=== PATIENT | male | born 1960 | race Caucasian/White ===

== ENCOUNTER 2017-12-21 08:06 | Observation (INO) | payer OTHER ==
[2017-12-21] VITALS (8 sets, daily range): BP systolic 92–144; BP diastolic 64–80; PULSE 56–67; RESP 12–16; TEMP 97.9–98; O2SAT 96–100
[~2017-12-21] VITALS: Ht 172.7 cm; Wt 70.0 kg
[~2017-12-21 08:06] MED LIST: CLIN150 PO; CLOT1CRE TOP; FLUC150T PO; SULF1TAB47 PO
[2017-12-21] MEDS ORDERED: SODIUM CHLOR 0.9% 1000 ML INJ 1,000 ML IV ONE (08:35)
[2017-12-21] MEDS ORDERED: SODIUM CHLORIDE 0.9% FLUSH 10 ML FLUSH IVF PRN (08:45)
[2017-12-21 09:02] LABS: AUTOMATED NEUTROPHIL # 6.5 TH/MM3 (1.8-7.7); BASOPHIL # 0.1 TH/MM3 (0-0.2); BASOPHIL % 0.9 % (0.0-2.0); EOSINOPHIL # 0.3 TH/MM3 (0-0.4); EOSINOPHIL % 2.9 % (0.0-4.0); HEMATOCRIT 45.5 % (39.0-51.0); HEMOGLOBIN 14.7 GM/DL (13.0-17.0); LYMPHOCYTE # 1.7 TH/MM3 (1.0-4.8); MEAN CORPUSCULAR HEMOGLOBIN 28.4 PG (27.0-34.0); MEAN CORPUSCULAR HGB CONC 32.3 % (32.0-36.0); MEAN PLATELET VOLUME 8.3 FL (7.0-11.0); MONO % 4.6 % (0.0-8.0); MONOCYTE # 0.4 TH/MM3 (0-0.9); NEUT % 72.6 % (16.0-70.0); PLATELET COUNT 206 TH/MM3 (150-450); RED BLOOD COUNT 5.17 MIL/MM3 (4.50-5.90); RED CELL DISTRIBUTION WIDTH 12.6 % (11.6-17.2)
--- NOTE | 2017-12-21 09:04 | RADRPT ---
EXAM DATE/TIME: 12/21/2017 08:54 [facility] COMPARISON: No previous studies available for comparison. INDICATIONS : Palpitations, dizzy MEDICAL HISTORY : None. SURGICAL HISTORY : None. ENCOUNTER: Initial ACUITY: 2 days PAIN SCORE: 0/10 LOCATION: Bilateral chest FINDINGS: A single view of the chest demonstrates the lungs to be symmetrically aerated without evidence of mas s, infiltrate or effusion. The cardiomediastinal contours are unremarkable. Osseous structures are intact. CONCLUSION: No acute disease. Yonny Tom MD on December 21, 2017 at 9:01 Board Certified Radiologist. This report was verified electronically.
[2017-12-21 09:11] LABS: CHLORIDE 107 MEQ/L (98-107); SODIUM (NA) 142 MEQ/L (136-145)
[2017-12-21 09:14] LABS: ALBUMIN 3.6 GM/DL (3.4-5.0); BICARBONATE 27.6 MEQ/L (21.0-32.0); CALCIUM 8.6 MG/DL (8.5-10.1); GLUCOSE,RANDOM 109 MG/DL (74-106); MAGNESIUM 2.1 MG/DL (1.5-2.5)
[2017-12-21 09:15] LABS: BLOOD UREA NITROGEN 17 MG/DL (7-18)
[2017-12-21 09:17] LABS: ALT (GPT) 19 U/L (12-78); AST (GOT) 16 U/L (15-37)
[2017-12-21 09:18] LABS: CREATININE 0.97 MG/DL (0.60-1.30); GLOMERULAR FILTRATION RATE 79 ML/MIN (>89)
[2017-12-21 09:19] LABS: TOTAL BILIRUBIN ADULT 0.9 MG/DL (0.2-1.0); TOTAL PROTEIN 6.8 GM/DL (6.4-8.2)
[2017-12-21 09:20] LABS: ALKALINE PHOSPHATASE 68 U/L (45-117)
[2017-12-21 09:22] LABS: TROPONIN I LESS THAN 0.02 NG/ML (0.02-0.05)
--- NOTE | 2017-12-21 09:24 | RADRPT ---
EXAM DATE/TIME: 12/21/2017 09:06 [facility] COMPARISON: No previous studies available for comparison. INDICATIONS : Dizziness. RADIATION DOSE: 62.44 CTDIvol (mGy) MEDICAL HISTORY : None SURGICAL HISTORY : Orthopedic surgery. ENCOUNTER: Initial ACUITY: 2 days PAIN SCALE: 0/10 LOCATION: cranial TECHNIQUE: Multiple contiguous axial images were obtained of the head. Using automated exposure control and adj ustment of the mA and/or kV according to patient size, radiation dose was kept as low as reasonably a chievable to obtain optimal diagnostic quality images. DICOM format image data is available electro nically for review and comparison. FINDINGS: CEREBRUM: The ventricles are normal for age. No evidence of midline shift, mass lesion, hemorrhage or acute in farction. No extra-axial fluid collections are seen. POSTERIOR FOSSA: The cerebellum and brainstem are intact. The 4th ventricle is midline. The cerebellopontine angle i s unremarkable. EXTRACRANIAL: The visualized portion of the orbits is intact. Mucosal thickening involving the ethmoid and maxillar y sinuses. SKULL: The calvaria is intact. No evidence of skull fracture. CONCLUSION: No acute intracranial abnormality. Mucosal thickening involving the ethmoid and maxil ambar sinuses. Yonny Tom MD on December 21, 2017 at 9:20 Board Certified Radiologist. This report was verified electronically.
--- NOTE | 2017-12-21 09:25 | PD ---
HPI Chief Complaint: Dizziness Time Seen by Provider: 08:35 Travel History International Travel<30 days: No Contact w/Intl Traveler<30days: No Traveled to known affect area: No History of Present Illness HPI 57-year-old male returns to the ER due to dizziness and visual changes. Symptoms were noted to be severe last night however he has had mild symptoms for several weeks now. This morning he was unsteady and bracing himself in a doorway which alarmed his who brought him here for evaluation. He reports insomnia lately and stress due to family related concerns. He denies new different medication. He denies past medical history. No loss of consciousness has occurred. No chest pain shortness of breath nausea or vomiting reported. The patient reports night sweats. PFSH Past Medical History Medical History: Denies Significant Hx Musculoskeletal: Yes (ARTHROSCOPIC ON LEFT KNEE 1996) Influenza Vaccination: No Social History Alcohol Use: Yes (STATES 1-2 DAYS A WEEK) Tobacco Use: Yes (1 PPD) Substance Use: No Allergies-Medications (Allergen,Severity, Reaction): Coded Allergies: No Known Allergies (Verified Allergy, Mild, 07/05/13) Reported Meds & Prescriptions Reported Meds & Active Scripts Active Lotrimin Cream (Clotrimazole) 15 Gm Cr 1 Applic TOP BID 14 Days Fluconazole 150 Mg Tab 150 Mg PO WEEKLY Bactrim Ds (Trimethoprim/Sulfamethoxazole) Tab 1 Tab PO BID 10 Days Cleocin (Clindamycin HCl) 150 Mg Cap 2 Tab PO QID 10 Days Review of Systems Except as stated in HPI: all other systems reviewed are Neg General / Constitutional: No: Fever Eyes: Positive: Blurred Vision, Visual changes Physical Exam Narrative GENERAL: 57-year-old male pleasant well-nourished well-developed no acute distress speaking full sentences Vital Signs Date Time Temp Pulse Resp B/P (MAP) Pulse Ox O2 Delivery O2 Flow Rate FiO2 12/21/17 08:50 96 Room Air 12/21/17 08:30 98.0 62 16 137/79 (98) 99 12/21/17 08:07 97.9 67 16 144/77 (99) 100 Room Air SKIN: Warm and dry. HEAD: Atraumatic. Normocephalic. EYES: Pupils equal and round. No scleral icterus. No injection or drainage. ENT: No nasal bleeding or discharge. Mucous membranes pink and moist. NECK: Trachea midline. No JVD. CARDIOVASCULAR: Regular rate and rhythm. RESPIRATORY: No accessory muscle use. Clear to auscultation. Breath sounds equal bilaterally. GASTROINTESTINAL: Abdomen soft, non-tender, nondistended. Hepatic and splenic margins not palpable. MUSCULOSKELETAL: Extremities without clubbing, cyanosis, or edema. No obvious deformities. NEUROLOGICAL: Awake and alert. No obvious cranial nerve deficits. Motor grossly within normal limits. Five out of 5 muscle strength in the arms and legs. Normal speech. PSYCHIATRIC: Appropriate mood and affect; insight and judgment normal. Data Data Last Documented VS Vital Signs Date Time Temp Pulse Resp B/P (MAP) Pulse Ox O2 Delivery O2 Flow Rate FiO2 12/21/17 10:54 67 12 135/64 (87) 98 Room Air 12/21/17 08:30 98.0 Orders Orders Electrocardiogram (12/21/17 08:35) Complete Blood Count With Diff (12/21/17 08:35) Comprehensive Metabolic Panel (12/21/17 08:35) Magnesium (Mg) (12/21/17 08:35) Ckmb (Isoenzyme) Profile (12/21/17 08:35) Troponin I (12/21/17 08:35) Chest, Single Ap (12/21/17 08:35) Ct Brain W/O Iv Contrast(Rout) (12/21/17 08:35) Ecg Monitoring (12/21/17 08:35) Iv Access Insert/Monitor (12/21/17 08:35) Oximetry (12/21/17 08:35) Sodium Chloride 0.9% Flush (Ns Flush) (12/21/17 08:45) Sodium Chlor 0.9% 1000 Ml Inj (Ns 1000 M (12/21/17 08:35) CKMB (12/21/17 08:50) CKMB% (12/21/17 08:50) Place In Observation (12/21/17 ) Vital Signs (Adult) Q4H (12/21/17 11:03) Activity Oob With Assistance (12/21/17 11:03) Diet Regular Basic (12/21/17 Lunch) Sodium Chlor 0.9% 1000 Ml Inj (Ns 1000 M (12/21/17 11:03) Sodium Chloride 0.9% Flush (Ns Flush) (12/21/17 11:15) Sodium Chloride 0.9% Flush (Ns Flush) (12/21/17 21:00) Acetaminophen (Tylenol) (12/21/17 11:15) Ondansetron Inj (Zofran Inj) (12/21/17 11:15) Basic Metabolic Panel (Bmp) (12/22/17 06:00) Complete Blood Count With Diff (12/22/17 06:00) Naloxone Inj (Narcan Inj) (12/21/17 11:15) Sennosides (Senokot) (12/21/17 11:15) Influenzae A/B Antigen (12/21/17 11:03) Mri Brain W/O Contrast (12/21/17 ) Orthostatic Vital Signs (12/21/17 11:03) Admit Order (Ed Use Only) (12/21/17 ) Transcribing Machine Operator / Telemetry [id number] (12/21/17 11:23) Vital Signs (Adult) Q4H (12/21/17 11:23) Activity Bed Rest (12/21/17 11:23) Labs Laboratory Tests Test 12/21/17 08:50 White Blood Count 9.0 TH/MM3 Red Blood Count 5.17 MIL/MM3 Hemoglobin 14.7 GM/DL Hematocrit 45.5 % Mean Corpuscular Volume 88.0 FL Mean Corpuscular Hemoglobin 28.4 PG Mean Corpuscular Hemoglobin Concent 32.3 % Red Cell Distribution Width 12.6 % Platelet Count 206 TH/MM3 Mean Platelet Volume 8.3 FL Neutrophils (%) (Auto) 72.6 % Lymphocytes (%) (Auto) 19.0 % Monocytes (%) (Auto) 4.6 % Eosinophils (%) (Auto) 2.9 % Basophils (%) (Auto) 0.9 % Neutrophils # (Auto) 6.5 TH/MM3 Lymphocytes # (Auto) 1.7 TH/MM3 Monocytes # (Auto) 0.4 TH/MM3 Eosinophils # (Auto) 0.3 TH/MM3 Basophils # (Auto) 0.1 TH/MM3 CBC Comment DIFF FINAL Differential Comment Blood Urea Nitrogen 17 MG/DL Creatinine 0.97 MG/DL Random Glucose 109 MG/DL Total Protein 6.8 GM/DL Albumin 3.6 GM/DL Calcium Level 8.6 MG/DL Magnesium Level 2.1 MG/DL Alkaline Phosphatase 68 U/L Aspartate Amino Transf (AST/SGOT) 16 U/L Alanine Aminotransferase (ALT/SGPT) 19 U/L Total Bilirubin 0.9 MG/DL Sodium Level 142 MEQ/L Potassium Level 4.1 MEQ/L Chloride Level 107 MEQ/L Carbon Dioxide Level 27.6 MEQ/L Anion Gap 7 MEQ/L Estimat Glomerular Filtration Rate 79 ML/MIN Total Creatine Kinase 199 U/L Creatine Kinase MB 2.3 NG/ML Troponin I LESS THAN 0.02 NG/ML MDM Medical Decision Making Medical Screen Exam Complete: Yes Emergency Medical Condition: Yes Medical Record Reviewed: Yes Differential Diagnosis Syncope, arrhythmia, metabolic disarray, anemia Narrative Course EKG shows sinus bradycardia with a rate of 55 no ischemic injury pattern or preexcitation CBC & BMP Diagram 12/21/17 08:50 Total Protein 6.8, Albumin 3.6, Calcium Level 8.6, Magnesium Level 2.1, Alkaline Phosphatase 68, Aspartate Amino Transf (AST/SGOT) 16, Alanine Aminotransferase (ALT/SGPT) 19, Total Bilirubin 0.9 Troponin is less than 0.02 EKG shows a sinus rhythm with a rate of 55 nonspecific T-wave inversions are noted in the inferior leads Head CT is normal Chest x-ray is normal Patient symptoms are slightly concerned due to the chronicity and now with visual change. Fortunately he has no reliable outside follow-up admission for investigation and syncope is considered reasonable. Pt to be admitted by Dr Pierre for [facility] under observation status Diagnosis Primary Impression: Syncope, near Additional Impression: Visual changes Referrals: Primary Care Physician Gm Smith MD Dec 21, 2017 09:25
[2017-12-21] MEDS ORDERED: SODIUM CHLOR 0.9% 1000 ML INJ 1,000 ML IV SCH (11:03)
--- NOTE | 2017-12-21 11:09 | HHI.HP ---
[facility] Service [facility] Primary Care Physician Sesar Mccollum MD Admission Diagnosis Diagnoses: Chief Complaint: Dizziness Travel History International Travel<30 Days: No Contact w/Intl Traveler <30 Da: No Traveled to Known Affected Are: No History of Present Illness This patient is a 57-year-old gentleman with history of recurrent dizziness that usually resolves itself. Today he was increasingly dizzy and had some vision disturbances. He came to the emergency room today for further evaluation. He has no chest pain or shortness of breath but reports increased cough and shortness of breath and increased sinus congestion. He has multiple sick contacts and feels everyone "has the flu". He normally does not take any medications. He has a history of "irregular heart", however his heart rate has been quite stable here. Patient been recommended for observation due to persistent dizziness" rate over 9 years ago Review of Systems Constitutional: COMPLAINS OF: Dizziness, DENIES: Diaphoretic episodes, Fatigue , Fever, Weight gain, Weight loss, Chills, Change in appetite, Night Sweats Endocrine: DENIES: Heat/cold intolerance, Polydipsia, Polyuria, Polyphagia Eyes: DENIES: Blurred vision, Diplopia, Eye inflammation, Eye pain, Vision loss , Photosensitivity, Double Vision Ears, nose, mouth, throat: COMPLAINS OF: Nasal discharge, Hoarseness, DENIES: Tinnitus, Hearing loss, Vertigo, Oral lesions, Throat pain, Ear Pain, Running Nose, Epistaxis, Sinus Pain, Toothache, Odynophagia Respiratory: COMPLAINS OF: Cough, DENIES: Apneas, Snoring, Wheezing, Hemoptysis , Sputum production, Shortness of breath Cardiovascular: DENIES: Chest pain, Palpitations, Syncope, Dyspnea on Exertion , PND, Lower Extremity Edema, Orthopnea, Claudication Gastrointestinal: DENIES: Abdominal pain, Black stools, Bloody stools, Constipation, Diarrhea, Nausea, Vomiting, Difficulty Swallowing, Anorexia Genitourinary: DENIES: Sexual dysfunction, Urinary frequency, Urinary incontinence, Urgency, Hematuria, Dysuria, Nocturia, Penile Discharge, Testicular Pain, Testicular Swelling Musculoskeletal: DENIES: Joint pain, Muscle aches, Stiffness, Joint Swelling, Back pain, Neck pain Integumentary: DENIES: Abnormal pigmentation, Nail changes, Pruritus, Rash Immunologic/allergic: DENIES: Eczema, Urticaria Neurologic: DENIES: Abnormal gait, Headache, Localized weakness, Paresthesias, Seizures, Speech Problems, Tremor, Poor Balance Psychiatric: DENIES: Anxiety, Confusion, Mood changes, Depression, Hallucinations, Agitation, Suicidal Ideation, Homicidal Ideation, Delusions Except as stated in HPI: all other systems reviewed are Neg Past Family Social History Past Medical History Denies Past Surgical History Left knee surgery Reported Medications Reviewed in the EMR, nothing chronic Allergies: Coded Allergies: No Known Allergies (Verified , 07/05/13) Active Ordered Medications None Family History Mother and father have weakness and mother has dementia Social History No alcohol dependency Lives with family Physical Exam Vital Signs Vital Signs Date Time Temp Pulse Resp B/P (MAP) Pulse Ox O2 Delivery O2 Flow Rate FiO2 12/21/17 10:54 67 12 135/64 (87) 98 Room Air 12/21/17 08:50 96 Room Air 12/21/17 08:30 98.0 62 16 137/79 (98) 99 12/21/17 08:07 97.9 67 16 144/77 (99) 100 Room Air Physical Exam GENERAL: This is a well-nourished, well-developed patient, congestion in the sinuses SKIN: No rashes, ecchymoses or lesions. Cool and dry. HEAD: Atraumatic. Normocephalic. No temporal or scalp tenderness. EYES: Pupils equal round and reactive. Extraocular motions intact. No scleral icterus. No injection or drainage. ENT: Nose without bleeding, purulent drainage or septal hematoma. Throat without erythema, tonsillar hypertrophy or exudate. Uvula midline. Airway patent. NECK: Trachea midline. No JVD or lymphadenopathy. Supple, nontender, no meningeal signs. CARDIOVASCULAR: Regular rate and rhythm without murmurs, gallops, or rubs. RESPIRATORY: Clear to auscultation. Breath sounds equal bilaterally. No wheezes , rales, or rhonchi. GASTROINTESTINAL: Abdomen soft, non-tender, nondistended. No hepato-splenomegaly , or palpable masses. No guarding. MUSCULOSKELETAL: Extremities without clubbing, cyanosis, or edema. No joint tenderness, effusion, or edema noted. No calf tenderness. Negative Homans sign bilaterally. NEUROLOGICAL: Awake and alert. Cranial nerves II through XII intact. Motor and sensory grossly within normal limits. Five out of 5 muscle strength in all muscle groups. Normal speech. Laboratory Laboratory Tests Test 12/21/17 08:50 White Blood Count 9.0 Red Blood Count 5.17 Hemoglobin 14.7 Hematocrit 45.5 Mean Corpuscular Volume 88.0 Mean Corpuscular Hemoglobin 28.4 Mean Corpuscular Hemoglobin Concent 32.3 Red Cell Distribution Width 12.6 Platelet Count 206 Mean Platelet Volume 8.3 Neutrophils (%) (Auto) 72.6 Lymphocytes (%) (Auto) 19.0 Monocytes (%) (Auto) 4.6 Eosinophils (%) (Auto) 2.9 Basophils (%) (Auto) 0.9 Neutrophils # (Auto) 6.5 Lymphocytes # (Auto) 1.7 Monocytes # (Auto) 0.4 Eosinophils # (Auto) 0.3 Basophils # (Auto) 0.1 CBC Comment DIFF FINAL Differential Comment Blood Urea Nitrogen 17 Creatinine 0.97 Random Glucose 109 Total Protein 6.8 Albumin 3.6 Calcium Level 8.6 Magnesium Level 2.1 Alkaline Phosphatase 68 Aspartate Amino Transf (AST/SGOT) 16 Alanine Aminotransferase (ALT/SGPT) 19 Total Bilirubin 0.9 Sodium Level 142 Potassium Level 4.1 Chloride Level 107 Carbon Dioxide Level 27.6 Anion Gap 7 Estimat Glomerular Filtration Rate 79 Total Creatine Kinase 199 Creatine Kinase MB 2.3 Troponin I LESS THAN 0.02 Result Diagram: 12/21/17 0850 12/21/[address] the head on my review unremarkable Chest x-ray on my review unremarkable Caprini VTE Risk Assessment Caprini VTE Risk Assessment: No/Low Risk (score <= 1) Caprini Risk Assessment Model Point Value = 1 Point Value = 2 Point Value = 3 Point Value = 5 Age 41-60 Minor surgery BMI > 25 kg/m2 Swollen legs Varicose veins or History of unexplained or recurrent spontaneous Oral contraceptives or hormone replacement Sepsis (< 1 month) Serious lung disease, including pneumonia (< 1 month) Abnormal pulmonary function Acute myocardial infarction Congestive heart failure (< 1 month) History of inflammatory bowel disease Medical patient at bed rest Age 61-74 Arthroscopic surgery Major open surgery (> 45 min) Laparoscopic surgery (> 45 min) Malignancy Confined to bed (> 72 hours) Immobilizing plaster cast Central venous access Age >= 75 History of VTE Family history of VTE Factor V Leiden Prothrombin [id number] Lupus anticoagulant Anticardiolipin antibodies Elevated serum homocysteine Heparin-induced thrombocytopenia Other congenital or acquired thrombophilia Stroke (< 1 month) Elective arthroplasty Hip, pelvis, or leg fracture Acute spinal cord injury (< 1 month) Prophylaxis Regimen Total Risk Factor Score Risk Level Prophylaxis Regimen 0-1 Low Early ambulation 2 Moderate Order ONE of the following: *Sequential Compression Device (SCD) *Heparin 5000 units SQ BID 3-4 Higher Order ONE of the following medications: *Heparin 5000 units SQ TID *Enoxaparin/Lovenox 40 mg SQ daily (WT < 150 kg, CrCl > 30 mL/min) *Enoxaparin/Lovenox 30 mg SQ daily (WT < 150 kg, CrCl > 10-29 mL/min) *Enoxaparin/Lovenox 30 mg SQ BID (WT < 150 kg, CrCl > 30 mL/min) AND/OR *Sequential Compression Device (SCD) 5 or more Highest Order ONE of the following medications: *Heparin 5000 units SQ TID (Preferred with Epidurals) *Enoxaparin/Lovenox 40 mg SQ daily (WT < 150 kg, CrCl > 30 mL/min) *Enoxaparin/Lovenox 30 mg SQ daily (WT < 150 kg, CrCl > 10-29 mL/min) *Enoxaparin/Lovenox 30 mg SQ BID (WT < 150 kg, CrCl > 30 mL/min) AND *Sequential Compression Device (SCD) Assessment and Plan Problem List: (1) Dizzy ICD Code: R42 - Dizziness and giddiness Plan: Patient with recurrent dizziness and now with acute viral syndrome Continue with IV fluids Monitor clinically Viral studies pending, follow-up MRI and check orthostatics Code Status Full code Discussed Condition With Patient, ER MD Pierre,Angelique Goins MD Dec 21, 2017 11:09
[2017-12-21] MEDS ORDERED: NALOXONE HCL 0.4 MG/ML AMP IV PUSH PRN (11:15)
[2017-12-21] MEDS ORDERED: ACETAMINOPHEN 325 MG TAB PO PRN (11:15)
[2017-12-21] MEDS ORDERED: ONDANSETRON HCL 4 MG/2 ML VIAL IVP PRN (11:15)
[2017-12-21] MEDS ORDERED: SODIUM CHLORIDE 0.9% FLUSH 10 ML FLUSH IV FLUSH PRN (11:15)
[2017-12-21] MEDS ORDERED: SENNOSIDES 8.6 MG TAB PO PRN (11:15)
--- NOTE | 2017-12-21 17:41 | RADRPT ---
EXAM DATE/TIME: 12/21/2017 17:28 [facility] COMPARISON: No previous studies available for comparison. INDICATIONS : Dizziness. Vision changes. MEDICAL HISTORY : None. SURGICAL HISTORY : None. ENCOUNTER: Initial ACUITY: 1 day PAIN SCORE: 0/10 LOCATION: cranial TECHNIQUE: Multiplanar, multisequence MRI of the brain was performed without contrast. FINDINGS: CEREBRUM: The ventricles are normal for age. No evidence of midline shift, mass lesion, hemorrhage or acute in farction. No extraaxial fluid collections are seen. The pituitary gland and suprasellar cistern are normal in configuration. WHITE MATTER: No significant signal abnormalities are seen in the white matter. POSTERIOR FOSSA: The cerebellum and brainstem are intact. The 4th ventricle is midline. The cerebellopontine angle is unremarkable. The cerebellar tonsils are normal in position. DIFFUSION IMAGING: No focal areas of restricted diffusion are seen. No evidence of acute infarction. EXTRACRANIAL: The visualized portions of the orbits are unremarkable. There is mucosal disease at the ethmoid and m axillary sinuses. CONCLUSION: 1. No intracranial abnormality seen. 2. Sinus disease. Sarthak Zaldivar MD on December 21, 2017 at 17:36 Board Certified Radiologist. This report was verified electronically.
--- NOTE | 2017-12-21 18:22 | HHI.DCPOC ---
Discharge Care Plan Diagnosis: (1) Dizzy Goals to Promote Your Health * To prevent worsening of your condition and complications * To maintain your health at the optimal level Directions to Meet Your Goals Take your medications as prescribed Follow your dietary instruction Follow activity as directed Keep your appointments as scheduled Take your immunizations and boosters as scheduled If your symptoms worsen call your PCP, if no PCP go to Urgent Care Center or Emergency Room Smoking is Dangerous to Your Health. Avoid second hand smoke Call the 24-hour hour crisis hotline for domestic abuse at Angelique Pierre MD Dec 21, 2017 18:22
--- NOTE | 2017-12-21 19:54 | EKG ---
Date Performed: 12/21/2017 Time Performed: 08:41:09 PTAGE: 57 years EKG: SINUS BRADYCARDIA LEFT ANTERIOR FASCICULAR BLOCK Since the previous tracing, no significant change noted ABNORMAL ECG PREVIOUS TRACING : 10/22/2007 17.58 DOCTOR: Hardy Price Interpretating Date/Time 12/21/2017 19:50:09
[2017-12-21] MEDS ORDERED: SODIUM CHLORIDE 0.9% FLUSH 10 ML FLUSH IV FLUSH SCH (21:00)
== END 2017-12-21 19:36 | disposition home or self-care (01) ==
LOC: PHED 08:06 → PHEDA 11:25
PROVIDERS: ADMIT Hospitalist; ATTEND Hospitalist
DX: R42 Dizziness and giddiness (principal); B34.9 Viral infection, unspecified; R06.02 Shortness of breath; R05 Cough; R09.81 Nasal congestion; R55 Syncope and collapse; H53.8 Other visual disturbances; R61 Generalized hyperhidrosis; I44.4 Left anterior fascicular block; R00.1 Bradycardia, unspecified; G47.00 Insomnia, unspecified; F17.200 Nicotine dependence, unspecified, uncomplicated
CPT/HCPCS: 70450; 70551; 71045; 80053; 82550; 82552; 83735; 84484; 85025; 87804; 93005; 96360; 96361; 99285; G0378; J7030